=== PATIENT | male | born 2000 | race African-American/Black ===

== ENCOUNTER 2022-09-30 13:36 | Emergency (ER) | payer MEDICAID ==
[2022-09-30] MEDS ORDERED: cefTRIAXone\\ROCEPHIN 500 MG VIAL ONE (14:14)
[2022-09-30] MEDS ORDERED: Sterile Water 10 ML ONE (14:15)
[2022-09-30 14:21] LABS: Bacteria/HPF None Seen HPF (None Seen); Bilirubin Negative (Negative); Blood, Urine Negative (Negative); Clarity Turbid (Clear); Glucose, Urine (Dipstick) Normal (Negative); Ketone, Urine Trace mg/dL (Negative); Leukocyte 75 Leu/uL (Negative); Nitrite Negative (Negative); Protein, Urine (Dipstick) 10 mg/dL (Neg-Trace); RBC/HPF 0-3 HPF (0-3); Specific Gravity, Urine 1.023 (1.002-1.036); Squamous Epithelial None Seen HPF (0-3); pH, Urine 7.5 (5.0-9.0)
[2022-09-30 20:55] LABS: Chlam.trachomatis by PCR,Urine Not Detected (NotDetected)
== END 2022-09-30 14:30 | disposition home or self-care (01) ==
LOC: ERS 13:36
DX: A64 Unspecified sexually transmitted disease (principal); F17.290 Nicotine dependence, other tobacco product, uncomplicated
CPT/HCPCS: 81003; 81015; 87491; 87591; 96372; 99283; J0696